=== PATIENT | female | born 1990 | race Caucasian/White ===

== ENCOUNTER 2017-07-27 22:55 | Emergency (ER) | payer MEDICAID ==
[~2017-07-27] VITALS: Ht 152.4 cm; Wt 77.7 kg
[~2017-07-27 22:55] MED LIST changes: -HYDROcodone/acetaminophen 5mg/325mg tablet PO ONE
[2017-07-27] MEDS ORDERED: ibuprofen tablet 400 MG TABLET PO ONE (23:25)
[2017-07-27] MEDS ORDERED: ondansetron 4mg rapidly disintigrating tab PO ONE (23:25)
[2017-07-27] MEDS ORDERED: oxyCODONE/APAP 5-325mg tablet PO ONE (23:25)
[2017-07-28 00:30] VITALS: BP 114/82
== END 2017-07-28 00:42 | disposition home or self-care (01) ==
LOC: ER 22:55
DX: S82.142A Displaced bicondylar fracture of left tibia, initial encounter for closed fracture (principal); F17.210 Nicotine dependence, cigarettes, uncomplicated; F12.10 Cannabis abuse, uncomplicated; Z88.6 Allergy status to analgesic agent; Z79.899 Other long term (current) drug therapy; X58.XXXA Exposure to other specified factors, initial encounter; Y93.89 Activity, other specified; Y92.89 Other specified places as the place of occurrence of the external cause; Y99.8 Other external cause status
CPT/HCPCS: 99284

== ENCOUNTER → 2017-07-27 | Emergency (ER) | payer MEDICAID ==
[~2017-07-27] VITALS: Ht 152.4 cm; Wt 78.8 kg
[~2017-07-27] MED LIST: CLIN-79 PO; HYDR-3965 PO; HYDROcodone/acetaminophen 5mg/325mg tablet PO ONE
[2017-07-27 11:15] LABS: URINE HCG NEGATIVE (NEG)
[2017-07-27 12:22] VITALS: BP 108/90
== END | disposition home or self-care (01) ==
LOC: ER 09:27
DX: S82.142A Displaced bicondylar fracture of left tibia, initial encounter for closed fracture (principal); Z88.8 Allergy status to other drugs, medicaments and biological substances; W01.0XXA Fall on same level from slipping, tripping and stumbling without subsequent striking against object, initial encounter; Y93.89 Activity, other specified; Y92.89 Other specified places as the place of occurrence of the external cause; Y99.8 Other external cause status
CPT/HCPCS: 29505; 73564; 73700; 81025; 99285

== ENCOUNTER 2017-08-02 11:04 | Outpatient (CLI) | payer MEDICAID ==
[~2017-08-02] VITALS: Ht 152.4 cm; Wt 80.0 kg
[2017-08-02 11:03] VITALS: BP 120/68
== END 2017-08-02 12:40 | disposition home or self-care (01) ==
LOC: ORTHO 11:04
PROVIDERS: ATTEND Nurse Practitioner Family
DX: S82.142A Displaced bicondylar fracture of left tibia, initial encounter for closed fracture (principal); F17.210 Nicotine dependence, cigarettes, uncomplicated; F41.9 Anxiety disorder, unspecified; F32.9 Major depressive disorder, single episode, unspecified; J45.909 Unspecified asthma, uncomplicated; K21.9 Gastro-esophageal reflux disease without esophagitis; X58.XXXA Exposure to other specified factors, initial encounter; Y93.89 Activity, other specified; Y92.89 Other specified places as the place of occurrence of the external cause; Y99.8 Other external cause status
CPT/HCPCS: 99215

== ENCOUNTER 2017-08-07 11:18 | Emergency (ER) | payer MEDICAID ==
[~2017-08-07] VITALS: Ht 152.4 cm; Wt 76.0 kg
[2017-08-07] MEDS ORDERED: PENI500T2 PO (11:58)
[2017-08-07 12:11] VITALS: BP 132/97
== END 2017-08-07 12:12 | disposition home or self-care (01) ==
LOC: ER 11:19
DX: J02.9 Acute pharyngitis, unspecified (principal); R11.2 Nausea with vomiting, unspecified; K21.9 Gastro-esophageal reflux disease without esophagitis; F12.10 Cannabis abuse, uncomplicated; Z88.6 Allergy status to analgesic agent
CPT/HCPCS: 99283

== ENCOUNTER 2017-08-21 09:36 | Day surgery (SDC) | payer MEDICAID ==
[2017-08-21] VITALS (10 sets, daily range): BP systolic 111–130; BP diastolic 62–82
[~2017-08-21] VITALS: Ht 152.4 cm; Wt 76.7 kg
[~2017-08-21 09:36] MED LIST changes: -CLIN-79 PO; +TRAM50TA2 PO; +VENL225T3 PO; +cefazolin/dext.iso 2gm/50ml 50 ML IV ONE; +famotidine 20mg tablet PO ONE; +ringers solution, lacted 1,000 ML IV SCH; +vancomycin inj 1,500 MG in normal saline 300ml IV soln IV ONE
[2017-08-21 11:22] LABS: BASOPHILS # (AUTO) 0.1 X10'3 (0-0.2); BASOPHILS % (AUTO) 1.1 % (0-1); EOSINOPHILS # (AUTO) 0.2 X10'3 (0-0.9); EOSINOPHILS % (AUTO) 2.8 % (0-6); LYMPHOCYTES % (AUTO) 25.6 % (21-51); MEAN CORPUSCULAR HEMOGLOBIN 30.1 PG (27.0-31.0); MEAN CORPUSCULAR HGB CONC 34.9 % (33.0-36.5); MEAN CORPUSCULAR VOLUME 86.2 FL (78-98); MEAN PLATELET VOLUME 7.9 FL (7.4-10.4); MONOCYTES # (AUTO) 0.5 X10'3 (0-0.9); MONOCYTES % (AUTO) 5.8 % (2-12); NEUTROPHILS # (AUTO) 5.2 X10'3 (1.8-7.7); NEUTROPHILS % (AUTO) 64.7 % (42-75); PRE OP HEMATOCRIT 38.1 % (35.0-45.0); PRE OP HEMOGLOBIN 13.3 g/dL (12.0-16.0); PRE OP PLATELET COUNT 240 X10'3 (140-440); RED BLOOD COUNT 4.43 X10'6 (4.20-5.60); RED CELL DISTRIBUTION WIDTH 13.3 % (11.5-14.5)
[2017-08-21 11:36] LABS: HCG SERUM QL NEGATIVE
[2017-08-21] MEDS ORDERED: ringers solution, lacted 1,000 ML IV SCH (12:43)
[2017-08-21] MEDS ORDERED: ondansetron/PF 4mg/2ml inj IV PRN (12:45)
[2017-08-21] MEDS ORDERED: meperidine/PF 50mg/ml syringe IV PRN ×3 (12:45)
[2017-08-21] MEDS ORDERED: proCHLORperazine 10 MG/2 ml inj IV PRN (12:45)
[2017-08-21] MEDS ORDERED: morphine 4 MG/ML inj SYRINge IV PRN ×2 (12:45)
[2017-08-21] MEDS ORDERED: dexamethasone sod phosphate 4mg/ml inj. ONE (13:15)
[2017-08-21] MEDS ORDERED: sevoflurane 250ml liquid IH ONE (13:15)
[2017-08-21] MEDS ORDERED: ondansetron/PF 4mg/2ml inj ONE (13:15)
[2017-08-21] MEDS ORDERED: ROPIVAcaine 0.5% (5mg/ml) 30ml vial ONE (13:29)
[2017-08-21] MEDS ORDERED: MIDAZolam 5mg/5ml vial ONE (13:29)
[2017-08-21] MEDS ORDERED: fentaNYL/PF 50MCG/1 ML 2ML syringe ONE ×2 (13:29→14:20)
[2017-08-21] MEDS ORDERED: diphenhydrAMINE 50 mg/ml inj ONE (13:55)
[2017-08-21] MEDS ORDERED: LIDOcaine 1%/PF (10mg/ml) 5ml vial ONE (14:00)
[2017-08-21] MEDS ORDERED: propofol inj 20 ML IV ONE ×2 (14:00)
[2017-08-21] MEDS ORDERED: ceFAZolin 1000mg inj ONE (14:00)
[2017-08-21] MEDS ORDERED: BUPIVAcaine/PF 2.5 mg/ml (0.25%) 30ml vial ONE (15:18)
== END 2017-08-21 17:15 | disposition home or self-care (01) ==
LOC: PAS 09:36
PROVIDERS: ATTEND Orthopaedic Surgery
DX: S82.142A Displaced bicondylar fracture of left tibia, initial encounter for closed fracture (principal); J45.909 Unspecified asthma, uncomplicated; F32.9 Major depressive disorder, single episode, unspecified; F41.9 Anxiety disorder, unspecified; K21.9 Gastro-esophageal reflux disease without esophagitis; F17.210 Nicotine dependence, cigarettes, uncomplicated; F12.11 Cannabis abuse, in remission; E66.9 Obesity, unspecified; G89.18 Other acute postprocedural pain; Z68.33 Body mass index [BMI] 33.0-33.9, adult; Z88.6 Allergy status to analgesic agent; Z90.721 Acquired absence of ovaries, unilateral; Z79.899 Other long term (current) drug therapy; W19.XXXA Unspecified fall, initial encounter; Y93.89 Activity, other specified; Y92.89 Other specified places as the place of occurrence of the external cause; Y99.8 Other external cause status
CPT/HCPCS: 27536; 36415; 64447; 73590; 76001; 84703; 85025; A6449; C1713; J0690; J1100; J1200; J2001; J2175; J2250; J2405; J2704; J2795; J3010; J3370; J3490; J7120; L1832; A7000

== ENCOUNTER 2017-08-30 11:05 | Outpatient (CLI) | payer MEDICAID ==
[~2017-08-30 11:05] MED LIST changes: -HYDR-3965 PO; -cefazolin/dext.iso 2gm/50ml 50 ML IV ONE; -famotidine 20mg tablet PO ONE; -ringers solution, lacted 1,000 ML IV SCH; -vancomycin inj 1,500 MG in normal saline 300ml IV soln IV ONE
[2017-08-30 11:06] VITALS: BP 123/78
== END 2017-08-30 11:42 | disposition home or self-care (01) ==
LOC: ORTHO 11:05
PROVIDERS: ATTEND Nurse Practitioner Family
DX: S82.142D Displaced bicondylar fracture of left tibia, subsequent encounter for closed fracture with routine healing (principal); F17.210 Nicotine dependence, cigarettes, uncomplicated; Z56.0 Unemployment, unspecified; Z88.6 Allergy status to analgesic agent; X58.XXXD Exposure to other specified factors, subsequent encounter
CPT/HCPCS: 99214; A6449

== ENCOUNTER 2017-09-20 15:00 | Outpatient (CLI) | payer MEDICAID ==
[2017-09-20 14:59] VITALS: BP 126/80
== END 2017-09-20 16:00 | disposition home or self-care (01) ==
LOC: ORTHO 15:00
PROVIDERS: ATTEND Nurse Practitioner Family
DX: S82.142D Displaced bicondylar fracture of left tibia, subsequent encounter for closed fracture with routine healing (principal); F17.210 Nicotine dependence, cigarettes, uncomplicated; Z88.6 Allergy status to analgesic agent; X58.XXXD Exposure to other specified factors, subsequent encounter
CPT/HCPCS: 73560; 99213

== ENCOUNTER 2017-10-25 14:27 | Outpatient (CLI) | payer MEDICAID | END 2017-10-25 15:15 | disposition home or self-care (01) | LOC: ORTHO 14:27 | PROVIDERS: ATTEND Nurse Practitioner Family | DX: S82.141D Displaced bicondylar fracture of right tibia, subsequent encounter for closed fracture with routine healing (principal); J02.9 Acute pharyngitis, unspecified; F17.200 Nicotine dependence, unspecified, uncomplicated; Z56.0 Unemployment, unspecified; Z88.6 Allergy status to analgesic agent; X58.XXXD Exposure to other specified factors, subsequent encounter | CPT/HCPCS: 73560; 99213 ==

== ENCOUNTER 2017-11-28 13:43 | Outpatient (CLI) | payer MEDICAID ==
[2017-11-28 13:50] VITALS: BP 116/65
== END 2017-11-28 14:26 | disposition home or self-care (01) ==
LOC: ORTHO 13:43
PROVIDERS: ATTEND Nurse Practitioner Family
DX: S82.142D Displaced bicondylar fracture of left tibia, subsequent encounter for closed fracture with routine healing (principal); F17.210 Nicotine dependence, cigarettes, uncomplicated; Z88.6 Allergy status to analgesic agent; Z56.0 Unemployment, unspecified; X58.XXXD Exposure to other specified factors, subsequent encounter
CPT/HCPCS: 73560; 99213

== ENCOUNTER 2018-09-15 12:48 | Emergency (ER) | payer MEDICAID ==
[~2018-09-15] VITALS: Ht 152.4 cm; Wt 75.0 kg
[2018-09-15] MEDS ORDERED: HYDR-4353 PO (13:46)
[2018-09-15 14:18] VITALS: BP 114/76
== END 2018-09-15 14:18 | disposition home or self-care (01) ==
LOC: ER 12:49
DX: M25.562 Pain in left knee (principal); J45.909 Unspecified asthma, uncomplicated; K21.9 Gastro-esophageal reflux disease without esophagitis; Z56.0 Unemployment, unspecified; Z88.6 Allergy status to analgesic agent; Z79.899 Other long term (current) drug therapy
CPT/HCPCS: 73564; 99284